=== PATIENT | female | born 1950 | race Caucasian/White ===

== ENCOUNTER 2017-12-24 09:53 | Outpatient (CLI) | payer MEDICARE | END 2017-12-24 09:54 | disposition home or self-care (01) | LOC: BICMAMMO 09:53 | PROVIDERS: ATTEND Obstetrics & Gynecology | DX: Z12.31 Encounter for screening mammogram for malignant neoplasm of breast (principal); Z13.820 Encounter for screening for osteoporosis | CPT/HCPCS: 77063; 77067; 77080 ==

== ENCOUNTER 2018-04-24 12:25 | Observation (INO) | payer MEDICARE, BC ==
[2018-04-24] MEDS ORDERED: Nitroglycerin 2% Ointment 1 INCH/1 GM Packet ONE (13:51)
[2018-04-24 14:30] LABS: Troponin I Less than 0.010 ng/mL (< 0.028)
[2018-04-24] MEDS ORDERED: Nitroglycerin 0.4 MG TAB (25 Tab Bottle) PO PRN (14:48)
[2018-04-24] MEDS ORDERED: Bisacodyl 5 MG TAB PO PRN (14:48)
[2018-04-24] MEDS ORDERED: Acetaminophen 325 MG TAB PO PRN (14:48)
[2018-04-24] MEDS ORDERED: Acetaminophen 650 MG Suppository PR PRN (14:48)
[2018-04-24 15:37] VITALS: BMI 28.5
--- NOTE | 2018-04-24 16:46 | HP ---
PRIMARY CARE PROVIDER: Salvatore Roe M.D. CHIEF COMPLAINT: Chest tightness. HISTORY OF PRESENT ILLNESS: Ms. Morris is a pleasant 68-year-old lady, who was seen at [facility] on 04/24/2018, following transfer from emergency room at [place]. She reports that over the last 5 days, she has been having palpitations. This was accompanied by angelita st tightness. She describes a tightness as retrosternal, nonradiating, on and off, no known aggravat ing or relieving factors, and not accompanied by lightheadedness, nausea or vomiting. She describes that the discomfort was 4-5/10 at its worst. She reports that sometimes the palpitations disappeared when she sits down and takes deep breaths. However, today's episode lasted longer, therefore she pr esented to the emergency room. When I saw her, she denied any chest discomfort or palpitations. REVIEW OF SYSTEMS: All other systems reviewed and found to be negative. PAST MEDICAL HISTORY: Hypertension, borderline diabetes type 2, plantar fasciitis, transient ischemi c attack and chronic left leg swelling. PAST SURGICAL HISTORY: Hysterectomy, oophorectomy, and colonoscopy. SOCIAL HISTORY: The patient denies alcohol use or recreational drug use. She smokes half a pack of cigarettes a day. FAMILY HISTORY: Significant for myocardial infarction in her father. ALLERGIES: No known drug allergies. CURRENT MEDICATIONS: Amlodipine 5 mg daily, calcium 600 mg daily, vitamin D3 2000 units daily, hydro chlorothiazide 12.5 mg daily, Toprol-XL 50 mg daily, Benicar 40 mg daily. PHYSICAL EXAMINATION: GENERAL: Ms. Morris is awake and alert, not in acute distress. VITAL SIGNS: Blood pressure is 134/67, pulse 80, respiratory rate 18, and oxygen saturation 95% on r oom air. She is afebrile. EYES: No scleral icterus. No conjunctival pallor. ENT: Moist mucosal membranes, no oropharyngeal erythema or exudates. NECK: Supple, nontender, trachea is midline. RESPIRATORY: Accessory muscles of breathing are not active. Chest wall movements are symmetric bila terally. LUNGS: Clear to auscultation without wheeze, rhonchi or crepitations. CARDIOVASCULAR: S1 and S2 are heard, regular. Peripheral pulses palpable. No carotid bruit, no per icardial rub. ABDOMEN: Soft, nontender, bowel sounds heard, no hepatomegaly, no splenomegaly. NEUROLOGIC: Cranial nerves II-XII intact, deep tendon reflexes are 2+. MUSCULOSKELETAL: Power is 5/5 in all 4 extremities. SKIN: No rashes or subcutaneous nodules. LYMPHATIC: No cervical lymphadenopathy. PSYCHIATRIC: Normal mood, normal affect, patient is oriented to person, place, and time. LABORATORY DATA: Ms. Morris's labs and investigations were reviewed. I reviewed her electrocardio gram, which shows normal sinus rhythm with premature atrial complexes. I also reviewed her chest x-r ay, which does not show any pulmonary infiltrates. She has normal troponin I, leukocytosis with 11,4 00 white cells, of which 76% are neutrophils, normal hemoglobin, normal platelet count, normal D-dime r of 0.35, decreased sodium of 135, normal potassium, normal creatinine and normal liver profile. ASSESSMENT AND PLAN: Ms. Morris is a pleasant 68-year-old lady, who was seen at [facility] on 04/24/2018. Her problem list includes: 1. Palpitations: Etiology unclear, she has premature atrial complexes on electrocardiogram. We destiny l admit her to the hospital and monitor her on telemetry. Further management depending on whether an y arrhythmias are seen. 2. Chest discomfort: Given her significant risk factors, we will obtain pharmacologic nuclear stres s test. 3. Hypertension: Continue home medications, monitor vital signs and titrate antihypertensives as ne eded. 4. Hyponatremia: Mild, likely asymptomatic, we will recheck. Many thanks for allowing me to participate in your patient's care. Please feel free to contact me wi th any questions or concerns. LEVEL OF RISK: High. LEVEL OF COMPLEXITY: High.
[2018-04-24 17:22] LABS: Troponin I Less than 0.010 ng/mL (< 0.028)
[2018-04-24] MEDS ORDERED: Prevnar 13-Val Conj/PF 0.5 ML SYRINGE IM ONE (21:00)
[2018-04-25 05:13] LABS: #Basophils 0.1 thou/uL (0.0-0.2); #Eosinphils 0.2 thou/uL (0.0-0.7); #Lymphocytes 1.5 thou/uL (1.20-3.40); #Monocytes 0.8 thou/uL (0.11-0.59); #Neutrophils 6.8 thou/uL (1.40-6.50); %Basophils 0.6 % (0.0-1.0); %Eosinophils 1.7 % (0.0-10.0); %Lymphocytes 15.7 % (21.0-51.0); %Monocytes 8.9 % (0.0-10.0); %Neutrophils 73.1 % (42.0-75.0); Hemoglobin 13.1 g/dL (12.0-16.0); Mean Corpuscular HGB CONC 33.2 g/dL (32.0-36.0); Mean Corpuscular Hemoglobin 31.2 pg (27.0-31.0); Mean Corpuscular Volume 93.9 fL (78.0-98.0); Mean Platelet Volume 6.9 fL (7.4-10.4); Platelet Count 285 thou/uL (130-400); RBC Distribution Width 12.8 % (11.5-14.5); Red Blood Cell (RBC) Count 4.19 mill/uL (4.20-5.40); White Blood Cell (WBC) Count 9.3 thou/uL (4.8-10.8)
[2018-04-25 05:25] LABS: Anion Gap 11 mmol/L (10-20); BUN (Urea Nitrogen) 18 mg/dL (9.8-20.1); Calc. Creatinine Clearance 97 mL/min (70-130); Calcium 9.2 mg/dL (7.8-10.44); Carbon Dioxide 27 mmol/L (23-31); Chloride 96 mmol/L (98-107); Estimated GFR-MDRD 81; Glucose 108 mg/dL (80-115); Potassium 4.2 mmol/L (3.5-5.1); Sodium 130 mmol/L (136-145)
[2018-04-25] MEDS ORDERED: Calcium Carbonate 600 MG TAB PO SCH (08:00)
[2018-04-25] MEDS ORDERED: Hydrochlorothiazide 25 MG TAB PO SCH (09:00)
[2018-04-25] MEDS ORDERED: Amlodipine 10 MG TAB PO SCH (09:00)
[2018-04-25] MEDS ORDERED: Aspirin 325 MG TAB PO SCH (09:00)
[2018-04-25] MEDS ORDERED: ADENOSINE 60 MG/20 ML VIAL ONE (10:26)
--- NOTE | 2018-04-25 13:16 | NM ---
MYOCARDIAL PERFUSION SCAN WITH SPECT IMAGING: HISTORY: Chest pain. Examination was performed using 27 mCi 99m Technetium sestamibi on the stress and 9 on the resting im ages. This shows a fairly normal distribution of the radiopharmaceutical without signs of ischemia o r scar. WALL MOTION: There is symmetric contractility to the ventricle. LEFT VENTRICULAR EJECTION FRACTION: The calculated left ventricular ejection fraction was 78%. IMPRESSION: Unremarkable myocardial perfusion scan. POS: JAVAN
[2018-04-25 16:00] VITALS: BP 144/66; TEMP 98
--- NOTE | 2018-04-26 01:02 | DIS ---
DATE OF ADMISSION: 04/24/2018 DATE OF DISCHARGE: 04/25/2018 DISCHARGE DIAGNOSES: 1. Chest pain, likely musculoskeletal. 2. Palpitations. 3. Hypertension, stable. 4. Hyponatremia secondary to hydrochlorothiazide. CONSULTATIONS: None. PERTINENT LABORATORY AND X-RAY FINDINGS: Sodium ranged between 130-135, creatinine 0.72. Troponin I negative x3. CBC within normal limits. Portable chest x-ray dated 04/24/2018 showed no acute cardi opulmonary process. Cardiolite stress test dated 04/25/2018 showed no evidence for reversible or fix ed ischemia with calculated ejection fraction of 78%. HOSPITAL COURSE: The patient was observed on the telemetry unit after initially presenting with ches t pain and palpitations. The patient underwent Cardiolite stress testing showing no evidence of reve rsible or fixed ischemia with calculated ejection fraction of 78%. Screening metabolic survey reveal ed mild hyponatremia likely due to chronic hydrochlorothiazide exposure. Recommendations are for ser ial monitoring as an outpatient and consideration for all adjustment to current dosing or considerati on for new agent. Telemetry monitoring showed a sinus mechanism with occasional premature atrial con tractions. Overall, the patient remained clinically stable during the hospital course. I have clay zayas discussed followup instructions and pertinent labs and cardiac studies at the time of discharge. The patient and spouse verbalized understanding and agreement and ready for discharge on 04/25/2018. DISCHARGE MEDICATIONS: 1. Amlodipine 5 mg p.o. daily. 2. Calcium carbonate 600 mg p.o. daily. 3. Vitamin D3 of 2000 units p.o. daily. 4. Hydrochlorothiazide 12.5 mg p.o. daily. 5. Toprol-XL 50 mg p.o. daily. 6. Benicar 40 mg p.o. daily. FOLLOWUP: The patient will follow up with Dr. Salvatore Roe within 7 days of discharge. CONDITION ON DISCHARGE: Stable. ACTIVITY: Ad heidi. DIET: Regular. CODE STATUS: FULL. DISPOSITION: Home on 04/25/2018.
== END 2018-04-25 16:16 | disposition home or self-care (01) ==
LOC: ERS 12:25 → 2SW 15:29
PROVIDERS: ADMIT Internal Medicine; ATTEND Internal Medicine
DX: R07.89 Other chest pain (principal); I10 Essential (primary) hypertension; E78.5 Hyperlipidemia, unspecified; E87.1 Hypo-osmolality and hyponatremia; Z79.899 Other long term (current) drug therapy
CPT/HCPCS: 78452; 80048; 84484; 85025; 90670; 93017; 94760 ×2; 99285; A9500; G0009; G0378 ×2; 36415; 90471; J0153

== ENCOUNTER 2021-06-14 08:04 | Inpatient (IN) | payer MEDICARE, BC ==
[2021-06-14] MEDS ORDERED: Furosemide 40 MG/4 ML VIAL ONE (08:25)
[2021-06-14 08:53] LABS: ALT (SGPT) 11 U/L (8-55); AST (SGOT) 13 U/L (5-34); Albumin 3.7 g/dL (3.4-4.8); Alkaline Phosphatase 103 U/L (40-110); Anion Gap 11 mmol/L (10-20); BUN (Urea Nitrogen) 16 mg/dL (9.8-20.1); Bilirubin, Total 0.3 mg/dL (0.2-1.2); Calc. Creatinine Clearance 0 mL/min (70-130); Calcium 8.5 mg/dL (7.8-10.44); Carbon Dioxide 24 mmol/L (23-31); Chloride 108 mmol/L (98-107); Globulin 2.2 g/dL (2.4-3.5); Glucose 107 mg/dL (80-115); Potassium 4.2 mmol/L (3.5-5.1); Protein, Total 5.9 g/dL (5.8-8.1); Sodium 139 mmol/L (136-145)
[2021-06-14 08:56] LABS: #Eosinphils 0.1 thou/uL (0.0-0.7); #Lymphocytes 1.1 thou/uL (1.20-3.40); #Monocytes 0.8 thou/uL (0.11-0.59); #Neutrophils 6.8 thou/uL (1.40-6.50); %Basophils 0.2 % (0.0-1.0); %Eosinophils 1.4 % (0.0-10.0); %Lymphocytes 12.7 % (21.0-51.0); %Neutrophils 76.7 % (42.0-75.0); Hemoglobin 5.3 g/dL (12.0-16.0); Mean Corpuscular HGB CONC 27.9 g/dL (32.0-36.0); Mean Corpuscular Hemoglobin 17.7 pg (27.0-31.0); Mean Corpuscular Volume 63.5 fL (78.0-98.0); Mean Platelet Volume 10.3 fL (7.4-10.4); Platelet Count 290 thou/uL (130-400); RBC Distribution Width 19.4 % (11.5-14.5); Red Blood Cell (RBC) Count 2.98 mill/uL (4.20-5.40); White Blood Cell (WBC) Count 8.9 thou/uL (4.8-10.8)
[2021-06-14 09:55] LABS: Hypochromia MARKED = >30 cells (100X) (0-5/hpf); Polychromasia SLIGHT = 2-3 cells (100X) (0-2/hpf)
[2021-06-14 09:56] LABS: Microcytosis MODERATE=15-30 cells (100X) (0-5/hpf)
[2021-06-14 09:57] LABS: Ovalocytes SLIGHT = 2-5 cells (100X) (0-1/hpf); Stomatocytes SLIGHT = 2-5 cells (100X) (0-1/hpf)
[2021-06-14] MEDS ORDERED: Acetaminophen 325 MG TAB PO PRN (10:08)
[2021-06-14] MEDS ORDERED: Bisacodyl 5 MG TAB PO PRN (10:08)
[2021-06-14] MEDS ORDERED: Senokot S 8.6-50 MG TAB PO PRN (10:08)
[2021-06-14 10:47] LABS: Iron 14 ug/dL (50-170); Iron Binding Capacity, Total 511 mcg/dL (265-497)
[2021-06-14 10:55] LABS: Troponin I Less than 0.010 ng/mL (< 0.028)
[2021-06-14 13:29] LABS: Ferritin 4.35 ng/mL (10-291)
[2021-06-14] MEDS ORDERED: Potassium Chloride 10 MEQ TAB PO SCH (14:00)
[2021-06-14 14:56] VITALS: BMI 28.4
[2021-06-14] MEDS: Azithromycin 250 MG TAB PO SCH (15:17)
[2021-06-14] MEDS: Furosemide 40 MG/4 ML VIAL SLOW IVP SCH (15:18)
[2021-06-14 15:43] LABS: MDiff Complete? YES
[2021-06-14 16:22] LABS: Troponin I Less than 0.010 ng/mL (< 0.028)
[2021-06-14 17:06] LABS: SARS-CoV-2 PCR by NAA Not Detected (NotDetected)
[2021-06-14] MEDS: cefTRIAXone\\ROCEPHIN 1 GM in Sodium Chloride 0.9% 100 ML IVPB SCH (17:42)
[2021-06-14 18:46] LABS: Hemoglobin 7.4 g/dL (12.0-16.0)
[2021-06-14] MEDS: Rosuvastatin 20 MG TAB PO SCH (20:04)
[2021-06-15] MEDS: Furosemide 40 MG/4 ML VIAL SLOW IVP SCH (06:21)
[2021-06-15 07:11] LABS: #Eosinphils 0.1 thou/uL (0.0-0.7); #Lymphocytes 1.3 thou/uL (1.20-3.40); #Monocytes 0.8 thou/uL (0.11-0.59); #Neutrophils 5.7 thou/uL (1.40-6.50); %Basophils 0.6 % (0.0-1.0); %Eosinophils 1.6 % (0.0-10.0); %Lymphocytes 16.5 % (21.0-51.0); %Neutrophils 71.3 % (42.0-75.0); Hemoglobin 7.3 g/dL (12.0-16.0); Mean Corpuscular Hemoglobin 20.2 pg (27.0-31.0); Mean Corpuscular Volume 67.2 fL (78.0-98.0); Mean Platelet Volume 10.7 fL (7.4-10.4); Platelet Count 284 thou/uL (130-400); RBC Distribution Width 21.9 % (11.5-14.5); Red Blood Cell (RBC) Count 3.63 mill/uL (4.20-5.40)
[2021-06-15 07:24] LABS: Anion Gap 12 mmol/L (10-20); BUN (Urea Nitrogen) 13 mg/dL (9.8-20.1); Calc. Creatinine Clearance 92 mL/min (70-130); Calcium 8.8 mg/dL (7.8-10.44); Carbon Dioxide 27 mmol/L (23-31); Chloride 103 mmol/L (98-107); Glucose 115 mg/dL (80-115); Potassium 3.9 mmol/L (3.5-5.1); Sodium 138 mmol/L (136-145)
[2021-06-15] MEDS: Cholecalciferol 1,000 UNITS (25 MCG) TAB PO SCH (08:55)
[2021-06-15] MEDS: Losartan 25 MG TAB PO SCH (08:55)
[2021-06-15] MEDS: Vit A,C & E/Lutein/Minerals Tablet PO SCH (08:56)
[2021-06-15] MEDS: Calcium Carbonate 600 MG TAB PO SCH (08:56)
[2021-06-15] MEDS: Enoxaparin Sodium 40 MG/0.4 ML SYRINGE SC SCH (08:59)
[2021-06-15] MEDS ORDERED: Non-Formulary Item 1 EACH (Cholecalciferol (Vitamin D3) [Vitamin D] 1000 UNIT Capsule) PO SCH (09:00)
[2021-06-15] MEDS ORDERED: Aspirin 81 mg Enteric Coated Tablet PO SCH (09:00)
[2021-06-15] MEDS ORDERED: Non-Formulary Item 1 EACH (Vit A/Vit C/Vit E/Zinc/Copper [Preservision Areds] 1 TABLET Ta PO SCH (09:00)
[2021-06-15] MEDS ORDERED: Calcium Carbonate 500 MG TAB PO SCH (09:00)
[2021-06-15] MEDS ORDERED: Hydrochlorothiazide 25 MG TAB PO SCH (09:00)
[2021-06-15] MEDS ORDERED: Cholecalciferol 1,000 UNITS (25 MCG) TAB PO SCH (09:00)
[2021-06-15] MEDS: cefTRIAXone\\ROCEPHIN 1 GM in Sodium Chloride 0.9% 100 ML IVPB SCH (13:07)
[2021-06-15] MEDS: Azithromycin 250 MG TAB PO SCH (13:08)
[2021-06-15] MEDS ORDERED: GoLYTELY 4,000 ml Bottle PO SCH (17:00)
[2021-06-15] MEDS: Rosuvastatin 20 MG TAB PO SCH (20:01)
[2021-06-16] MEDS ORDERED: Furosemide 40 MG TAB PO SCH (07:30)
[2021-06-16 07:49] LABS: Anion Gap 13 mmol/L (10-20); BUN (Urea Nitrogen) 10 mg/dL (9.8-20.1); Calc. Creatinine Clearance 99 mL/min (70-130); Calcium 8.9 mg/dL (7.8-10.44); Carbon Dioxide 25 mmol/L (23-31); Chloride 106 mmol/L (98-107); Glucose 103 mg/dL (80-115); Potassium 3.7 mmol/L (3.5-5.1); Sodium 140 mmol/L (136-145)
[2021-06-16] MEDS ORDERED: Potassium Chloride 10 MEQ TAB PO SCH (09:00)
[2021-06-16] MEDS ORDERED: PROPOFOL 200 MG/20 ML VIAL ONE (09:14)
[2021-06-16] MEDS ORDERED: Lidocaine 1% PF 5 ML VIAL ONE (09:14)
[2021-06-16] MEDS: Calcium Carbonate 600 MG TAB PO SCH (10:50)
[2021-06-16] MEDS: Cholecalciferol 1,000 UNITS (25 MCG) TAB PO SCH (10:50)
[2021-06-16] MEDS: Losartan 25 MG TAB PO SCH (10:51)
[2021-06-16] MEDS: Vit A,C & E/Lutein/Minerals Tablet PO SCH (10:58)
[2021-06-16] MEDS: Enoxaparin Sodium 40 MG/0.4 ML SYRINGE SC SCH (11:02)
[2021-06-16 11:34] LABS: #Eosinphils 0.1 thou/uL (0.0-0.7); #Lymphocytes 1.2 thou/uL (1.20-3.40); #Monocytes 0.7 thou/uL (0.11-0.59); #Neutrophils 5.6 thou/uL (1.40-6.50); %Basophils 0.4 % (0.0-1.0); %Eosinophils 1.7 % (0.0-10.0); %Lymphocytes 16.1 % (21.0-51.0); %Monocytes 9.4 % (0.0-10.0); %Neutrophils 72.4 % (42.0-75.0); Hemoglobin 7.6 g/dL (12.0-16.0); Mean Corpuscular HGB CONC 30.6 g/dL (32.0-36.0); Mean Corpuscular Hemoglobin 20.6 pg (27.0-31.0); Mean Corpuscular Volume 67.3 fL (78.0-98.0); Mean Platelet Volume 10.9 fL (7.4-10.4); Platelet Count 283 thou/uL (130-400); White Blood Cell (WBC) Count 7.7 thou/uL (4.8-10.8)
[2021-06-16 11:48] LABS: Hypochromia MODERATE=16-30 cells (100X) (0-5/hpf); MDiff Complete? YES; Microcytosis MODERATE=15-30 cells (100X) (0-5/hpf); Ovalocytes SLIGHT = 2-5 cells (100X) (0-1/hpf); Platelet Morphology Comment Appears Adequate; Polychromasia SLIGHT = 2-3 cells (100X) (0-2/hpf); Reflex for Review?? NO
[2021-06-16 14:29] VITALS: BP 150/69; TEMP 98.1
[2021-06-16] MEDS: Azithromycin 250 MG TAB PO SCH (15:18)
[2021-06-16] MEDS: cefTRIAXone\\ROCEPHIN 1 GM in Sodium Chloride 0.9% 100 ML IVPB SCH (15:25)
== END 2021-06-16 15:40 | disposition home or self-care (01) | DRG 811 ==
LOC: ERS 08:04 → T4-A 09:57
PROVIDERS: ADMIT Internal Medicine; ATTEND Internal Medicine
PROC: 0DB98ZX Excision of Duodenum, Via Natural or Artificial Opening Endoscopic, Diagnostic (ICD-10-PCS; principal; 2021-06-14)
PROC: 0DB68ZX Excision of Stomach, Via Natural or Artificial Opening Endoscopic, Diagnostic (ICD-10-PCS; 2021-06-14)
PROC: 0DJD8ZZ Inspection of Lower Intestinal Tract, Via Natural or Artificial Opening Endoscopic (ICD-10-PCS; 2021-06-14)
PROC: 30233N1 Transfusion of Nonautologous Red Blood Cells into Peripheral Vein, Percutaneous Approach (ICD-10-PCS; 2021-06-14)
DX: D62 Acute posthemorrhagic anemia (principal); J18.9 Pneumonia, unspecified organism; F17.210 Nicotine dependence, cigarettes, uncomplicated; Z20.822 Contact with and (suspected) exposure to COVID-19; K31.7 Polyp of stomach and duodenum; K64.8 Other hemorrhoids; K64.4 Residual hemorrhoidal skin tags; I11.0 Hypertensive heart disease with heart failure; E11.9 Type 2 diabetes mellitus without complications; E78.5 Hyperlipidemia, unspecified; I50.9 Heart failure, unspecified; Z80.0 Family history of malignant neoplasm of digestive organs; Z79.82 Long term (current) use of aspirin; Z79.899 Other long term (current) drug therapy; Z86.73 Personal history of transient ischemic attack (TIA), and cerebral infarction without residual deficits; Z90.710 Acquired absence of both cervix and uterus
CPT/HCPCS: 36415; 36430; 71045; 80048; 80053; 82306; 82607; 82728; 82746; 83540; 83550; 83880; 84443; 84484; 85025; 85060; 86850; 86900; 86901; 88305; 93005; 96374; J0696; J1940; J2704; J3490; P9016; U0003; U0005

== ENCOUNTER 2021-07-11 09:09 | Outpatient (CLI) | payer MEDICARE, BC | END 2021-07-11 09:10 | disposition home or self-care (01) | LOC: CT 09:09 | PROVIDERS: ATTEND Internal Medicine Gastroenterology | DX: K56.699 Other intestinal obstruction unspecified as to partial versus complete obstruction (principal); D50.9 Iron deficiency anemia, unspecified | CPT/HCPCS: 74178; 82565 ==

== ENCOUNTER 2021-10-03 09:56 | Outpatient (CLI) | payer MEDICARE, BC | END 2021-10-03 09:57 | disposition home or self-care (01) | LOC: BICMAMMO 09:56 | PROVIDERS: ATTEND Internal Medicine | DX: Z12.31 Encounter for screening mammogram for malignant neoplasm of breast (principal); Z91.89 Other specified personal risk factors, not elsewhere classified | CPT/HCPCS: 77063; 77067 ==

== ENCOUNTER 2022-01-30 06:37 | Outpatient (CLI) | payer MEDICARE, BC ==
[2022-01-30] MEDS ORDERED: Iopamidol 370 76% 100 ML VIAL ONE (13:49)
== END 2022-01-30 06:38 | disposition home or self-care (01) ==
LOC: CT 06:37
PROVIDERS: ATTEND Internal Medicine Gastroenterology
DX: D50.9 Iron deficiency anemia, unspecified (principal); K56.699 Other intestinal obstruction unspecified as to partial versus complete obstruction
CPT/HCPCS: 74178; Q9967

== ENCOUNTER 2022-09-04 17:01 | Inpatient (IN) | payer MEDICARE, BC ==
[2022-09-04] MEDS ORDERED: Ondansetron PF 4 MG/2 ML Vial IVP PRN (22:46)
[2022-09-04] MEDS ORDERED: Ondansetron ODT 4 MG TAB PO PRN (22:46)
[2022-09-04] MEDS ORDERED: Acetaminophen 325 MG TAB PO PRN (22:46)
[2022-09-04 23:15] LABS: #Eosinphils 0.2 thou/uL (0.0-0.7); #Lymphocytes 1.5 thou/uL (1.20-3.40); #Monocytes 0.9 thou/uL (0.11-0.59); #Neutrophils 6.3 thou/uL (1.40-6.50); %Basophils 0.4 % (0.0-1.0); %Eosinophils 1.8 % (0.0-10.0); %Lymphocytes 17.2 % (21.0-51.0); %Monocytes 9.8 % (0.0-10.0); %Neutrophils 70.8 % (42.0-75.0); Hemoglobin 7.1 g/dL (12.0-16.0); Mean Corpuscular HGB CONC 30.9 g/dL (32.0-36.0); Mean Corpuscular Hemoglobin 25.1 pg (27.0-31.0); Mean Corpuscular Volume 81.3 fl (78.0-98.0); Mean Platelet Volume 7.8 fL (7.4-10.4); Platelet Count 270 10x3/uL (130-400); RBC Distribution Width 20.1 % (11.5-14.5); Red Blood Cell (RBC) Count 2.82 mill/uL (4.20-5.40); White Blood Cell (WBC) Count 8.9 10x3/uL (4.8-10.8)
[2022-09-04 23:30] LABS: INR-International Normal Ratio 0.9; Prothrombin Time 12.9 sec (12.0-14.7)
[2022-09-04 23:31] LABS: PTT 26.1 sec (22.9-36.1)
[2022-09-04 23:48] LABS: ALT (SGPT) 13 U/L (8-55); AST (SGOT) 13 U/L (5-34); Albumin 3.7 g/dL (3.4-4.8); Alkaline Phosphatase 77 U/L (40-110); Anion Gap 12 mmol/L (10-20); BUN (Urea Nitrogen) 18 mg/dL (9.8-20.1); Bilirubin, Total 0.3 mg/dL (0.2-1.2); Calc. Creatinine Clearance 0 mL/min (70-130); Calcium 8.8 mg/dL (7.8-10.44); Carbon Dioxide 26 mmol/L (23-31); Chloride 103 mmol/L (98-107); Estimated GFR 87; Globulin 2.3 g/dL (2.4-3.5); Glucose 128 mg/dL (80-115); Iron 64 ug/dL (50-170); Potassium 3.8 mmol/L (3.5-5.1); Sodium 137 mmol/L (136-145)
[2022-09-05] MEDS ORDERED: Rosuvastatin 10 MG TAB PO SCH ×2 (00:15→21:00)
[2022-09-05 02:07] VITALS: BMI 28.5
[2022-09-05 02:45] LABS: Transferrin, Serum 358 mg/dL (173-360)
[2022-09-05 03:07] LABS: Iron Binding Capacity, Total 440 mcg/dL (265-497)
[2022-09-05 04:51] LABS: SARS-CoV-2 NAA Rapid Test Not Detected (NotDetected)
[2022-09-05 07:47] LABS: Hemoglobin 8.2 g/dL (12.0-16.0)
[2022-09-05] MEDS: Pantoprazole 40 MG VIAL IVP SCH ×2 (08:51→20:40)
[2022-09-05] MEDS ORDERED: Loratadine 10 MG TAB PO PRN (14:22)
[2022-09-06 06:27] LABS: #Eosinphils 0.1 thou/uL (0.0-0.7); #Lymphocytes 1.3 thou/uL (1.20-3.40); #Monocytes 0.8 thou/uL (0.11-0.59); #Neutrophils 4.5 thou/uL (1.40-6.50); %Basophils 0.4 % (0.0-1.0); %Eosinophils 1.7 % (0.0-10.0); %Monocytes 11.5 % (0.0-10.0); %Neutrophils 67.4 % (42.0-75.0); Hemoglobin 8.3 g/dL (12.0-16.0); Mean Corpuscular HGB CONC 31.6 g/dL (32.0-36.0); Mean Corpuscular Hemoglobin 26.6 pg (27.0-31.0); Mean Corpuscular Volume 84.2 fl (78.0-98.0); Mean Platelet Volume 7.9 fL (7.4-10.4); Platelet Count 258 10x3/uL (130-400); RBC Distribution Width 19.3 % (11.5-14.5); Red Blood Cell (RBC) Count 3.11 mill/uL (4.20-5.40); White Blood Cell (WBC) Count 6.7 10x3/uL (4.8-10.8)
[2022-09-06 06:50] LABS: Anion Gap 11 mmol/L (10-20); BUN (Urea Nitrogen) 14 mg/dL (9.8-20.1); Calc. Creatinine Clearance 92 mL/min (70-130); Calcium 8.5 mg/dL (7.8-10.44); Carbon Dioxide 27 mmol/L (23-31); Chloride 105 mmol/L (98-107); Estimated GFR 93; Glucose 116 mg/dL (80-115); Potassium 4.1 mmol/L (3.5-5.1); Sodium 139 mmol/L (136-145)
[2022-09-06] MEDS: Pantoprazole 40 MG VIAL IVP SCH (08:27)
[2022-09-06] MEDS ORDERED: Potassium Chloride 10 MEQ TAB PO SCH (09:00)
[2022-09-06] MEDS ORDERED: Calcium Carbonate 500 MG TAB PO SCH (09:00)
[2022-09-06] MEDS ORDERED: Cholecalciferol 1,000 UNITS (25 MCG) TAB PO SCH (09:00)
[2022-09-06] MEDS ORDERED: Furosemide 20 MG TAB PO SCH (09:00)
[2022-09-06 11:25] VITALS: BP 127/60; TEMP 98.2
== END 2022-09-06 11:50 | disposition home or self-care (01) | DRG 812 ==
LOC: NEURO 17:01 → OBSVTOIN 09-05 16:31
PROVIDERS: ADMIT Family Medicine; ATTEND Family Medicine
PROC: 30233N1 Transfusion of Nonautologous Red Blood Cells into Peripheral Vein, Percutaneous Approach (ICD-10-PCS; principal; 2022-09-05)
DX: D62 Acute posthemorrhagic anemia (principal); Z20.822 Contact with and (suspected) exposure to COVID-19; E78.5 Hyperlipidemia, unspecified; R19.5 Other fecal abnormalities; E11.9 Type 2 diabetes mellitus without complications; I10 Essential (primary) hypertension; F17.210 Nicotine dependence, cigarettes, uncomplicated; Z79.899 Other long term (current) drug therapy; Z79.82 Long term (current) use of aspirin; Z90.710 Acquired absence of both cervix and uterus; Z90.722 Acquired absence of ovaries, bilateral; Z98.49 Cataract extraction status, unspecified eye; Z80.0 Family history of malignant neoplasm of digestive organs
CPT/HCPCS: 36415; 36430; 74177; 80048; 80053; 82274; 82728; 83540; 83550; 84466; 85014; 85018; 85025; 85610; 85730; 86850; 86900; 86901; 96374; C9113; G0378; P9016

== ENCOUNTER 2022-10-11 14:12 | Outpatient (CLI) | payer MEDICARE, BC | END 2022-10-11 14:13 | disposition home or self-care (01) | LOC: BICMAMMO 14:12 | PROVIDERS: ATTEND Internal Medicine | DX: Z12.31 Encounter for screening mammogram for malignant neoplasm of breast (principal); Z91.89 Other specified personal risk factors, not elsewhere classified | CPT/HCPCS: 77063; 77067 ==

== ENCOUNTER 2022-10-12 12:00 | Inpatient (IN) | payer MEDICARE, BC ==
[2022-10-16 12:31] VITALS: BMI 29.3
[2022-10-17] MEDS ORDERED: Sodium Chloride 0.9% 100 ML ONE (07:52)
[2022-10-17] MEDS ORDERED: Ketorolac Tromethamine 30 MG/ML VIAL ONE (07:52)
[2022-10-17] MEDS ORDERED: Acetaminophen 500 MG TAB ONE (07:52)
[2022-10-17] MEDS ORDERED: CEFAZOLIN 2 GM VIAL ONE (07:52)
[2022-10-17] MEDS ORDERED: Midazolam HCl 2 mg/2 ml Vial ONE (08:35)
[2022-10-17] MEDS ORDERED: Bupivacaine PF 0.5% 30 ML VIAL ONE (08:35)
[2022-10-17] MEDS ORDERED: FENTANYL 50 MCG/ML 1 ML VIAL ONE (08:35)
[2022-10-17] MEDS ORDERED: Bupivacaine/Epinephrine 0.25% 30 ML VIAL ONE (08:44)
[2022-10-17] MEDS ORDERED: Albumin 5% 0 ML ONE (08:52)
[2022-10-17] MEDS ORDERED: fentaNYL PF 100 MCG/2 ML SYRINGE ONE (08:52)
[2022-10-17 09:02] LABS: SARS-CoV-2 NAA Rapid Test Not Detected (NotDetected)
[2022-10-17] MEDS ORDERED: Phenylephrine 10 MG/ML VIAL ONE (09:04)
[2022-10-17] MEDS ORDERED: NEOSTIGMINE 3 MG/3 ML SYR 3 MG/3 ML SYRINGE ONE (09:17)
[2022-10-17] MEDS ORDERED: Dexamethasone 20 MG/5 ML VIAL ONE (09:17)
[2022-10-17] MEDS ORDERED: Lidocaine 1% PF 5 ML VIAL ONE (09:17)
[2022-10-17] MEDS ORDERED: PROPOFOL 200 MG/20 ML VIAL ONE (09:17)
[2022-10-17] MEDS ORDERED: Ondansetron PF 4 MG/2 ML Vial ONE (09:17)
[2022-10-17] MEDS ORDERED: ePHEDrine 50 MG/ML VIAL ONE (09:17)
[2022-10-17] MEDS ORDERED: Metoclopramide HCl 10 MG/2 ML VIAL ONE (09:17)
[2022-10-17] MEDS ORDERED: Glycopyrrolate 0.2 MG/ML 5 ML SYRINGE ONE (09:17)
[2022-10-17] MEDS ORDERED: Bupivacaine HCl 0.5%/Epinephrine 1:200,000/PF 30 ml Vial ONE (09:17)
[2022-10-17] MEDS ORDERED: Rocuronium Bromide 10 MG/ML (10ML VIAL) ONE (09:17)
[2022-10-17] MEDS ORDERED: Ondansetron HCl/PF 4 MG/2 ML Vial IVP PRN (11:31)
[2022-10-17] MEDS ORDERED: Promethazine HCl 25 MG/ML VIAL IM PRN ×2 (11:31→11:59)
[2022-10-17] MEDS ORDERED: PACU-Morphine 4MG/ML VIAL SLOW IVP PRN (11:31)
[2022-10-17] MEDS ORDERED: hydrALAZINE 20 MG/ML VIAL SLOW IVP PRN (11:59)
[2022-10-17] MEDS ORDERED: Ipratropium/Albuterol 3 ML NEB NEB PRN (11:59)
[2022-10-17] MEDS ORDERED: Ondansetron PF 4 MG/2 ML Vial IVP PRN (11:59)
[2022-10-17] MEDS ORDERED: Morphine 2 MG/ML VIAL SLOW IVP PRN (11:59)
[2022-10-17] MEDS ORDERED: HYDROcodone/Acetaminophen 7.5/325 mg Tablet PO PRN ×2 (11:59)
[2022-10-17] MEDS: Ketorolac Tromethamine 30 MG/ML VIAL IVP SCH ×3 (14:16→23:38)
[2022-10-17] MEDS: D5 1/2 NS w/20 mEq KCL 1,000 ML IV SCH ×2 (14:16→20:15)
[2022-10-17] MEDS: Morphine 4 MG/ML VIAL SLOW IVP PRN (15:31)
[2022-10-17] MEDS: Famotidine/PF 20 mg/2ml Vial SLOW IVP SCH (20:15)
[2022-10-17] MEDS: Famotidine 20 MG TAB PO SCH (20:15)
[2022-10-17] MEDS: Rosuvastatin 20 MG TAB PO SCH (20:15)
[2022-10-18] MEDS: D5 1/2 NS w/20 mEq KCL 1,000 ML IV SCH ×2 (04:21→11:47)
[2022-10-18] MEDS: Morphine 4 MG/ML VIAL SLOW IVP PRN (04:31)
[2022-10-18] MEDS: Ketorolac Tromethamine 30 MG/ML VIAL IVP SCH ×3 (06:05→17:42)
[2022-10-18 06:49] LABS: #Lymphocytes 0.4 thou/uL (1.20-3.40); #Monocytes 0.5 thou/uL (0.11-0.59); #Neutrophils 12.2 thou/uL (1.40-6.50); %Eosinophils 0.1 % (0.0-10.0); %Lymphocytes 3.3 % (21.0-51.0); %Monocytes 4.1 % (0.0-10.0); %Neutrophils 92.6 % (42.0-75.0); Hemoglobin 11.4 g/dL (12.0-16.0); Mean Corpuscular HGB CONC 32.9 g/dL (32.0-36.0); Mean Corpuscular Hemoglobin 30.5 pg (27.0-31.0); Mean Corpuscular Volume 92.6 fl (78.0-98.0); Mean Platelet Volume 8.9 fL (7.4-10.4); Platelet Count 172 10x3/uL (130-400); Red Blood Cell (RBC) Count 3.73 mill/uL (4.20-5.40); White Blood Cell (WBC) Count 13.2 10x3/uL (4.8-10.8)
[2022-10-18 07:10] LABS: Anion Gap 11 mmol/L (10-20); BUN (Urea Nitrogen) 16 mg/dL (9.8-20.1); Calc. Creatinine Clearance 93 mL/min (70-130); Calcium 8.2 mg/dL (7.8-10.44); Carbon Dioxide 25 mmol/L (23-31); Chloride 97 mmol/L (98-107); Estimated GFR 93; Glucose 186 mg/dL (80-115); Sodium 128 mmol/L (136-145)
[2022-10-18] MEDS: Famotidine 20 MG TAB PO SCH ×2 (08:16→20:49)
[2022-10-18] MEDS: Potassium Chloride 10 MEQ TAB PO SCH (08:16)
[2022-10-18] MEDS: Furosemide 20 MG TAB PO SCH (08:16)
[2022-10-18] MEDS: Famotidine/PF 20 mg/2ml Vial SLOW IVP SCH ×2 (08:17→20:50)
[2022-10-18] MEDS: Losartan/Hydrochlorothiazide 100 mg/25 mg Tablet PO SCH (08:17)
[2022-10-18] MEDS ORDERED: D5 1/2 NS w/20 mEq KCL 1,000 ML IV SCH (20:30)
[2022-10-18] MEDS: Rosuvastatin 20 MG TAB PO SCH (20:49)
[2022-10-19] MEDS: Ketorolac Tromethamine 30 MG/ML VIAL IVP SCH ×2 (00:30→06:00)
[2022-10-19 07:59] VITALS: BP 149/78; TEMP 97.4
[2022-10-19] MEDS: Famotidine 20 MG TAB PO SCH (09:31)
[2022-10-19] MEDS: Losartan/Hydrochlorothiazide 100 mg/25 mg Tablet PO SCH (09:31)
[2022-10-19] MEDS: Furosemide 20 MG TAB PO SCH (09:31)
[2022-10-19] MEDS: Famotidine/PF 20 mg/2ml Vial SLOW IVP SCH (09:32)
[2022-10-19] MEDS: Potassium Chloride 10 MEQ TAB PO SCH (09:32)
== END 2022-10-19 11:15 | disposition home or self-care (01) | DRG 331 ==
LOC: SURG A 10-17 07:02
PROVIDERS: ADMIT Specialist; ATTEND Specialist
PROC: 0DB80ZZ Excision of Small Intestine, Open Approach (ICD-10-PCS; principal; 2022-10-17)
DX: K92.2 Gastrointestinal hemorrhage, unspecified (principal); E11.9 Type 2 diabetes mellitus without complications; I10 Essential (primary) hypertension; E78.00 Pure hypercholesterolemia, unspecified; Z20.822 Contact with and (suspected) exposure to COVID-19; F17.210 Nicotine dependence, cigarettes, uncomplicated; D50.0 Iron deficiency anemia secondary to blood loss (chronic); Z79.82 Long term (current) use of aspirin; Z90.710 Acquired absence of both cervix and uterus; Z79.899 Other long term (current) drug therapy; Z98.890 Other specified postprocedural states; Z82.49 Family history of ischemic heart disease and other diseases of the circulatory system; Z83.3 Family history of diabetes mellitus; Z81.8 Family history of other mental and behavioral disorders
CPT/HCPCS: 36415; 36416; 80048; 85025; 88307; A4649; J1100; J1650; J1885; J2250; J2270; J2370; J2405; J2704; J2765; J3010; J3480; J3490; P9045; S0020; U0002

== ENCOUNTER 2022-10-12 12:13 | Outpatient (CLI) | payer MEDICARE, BC ==
[2022-10-12 13:14] LABS: #Eosinphils 0.1 10x3/uL (0.0-0.5); #Monocytes 0.6 10x3/uL (0.0-1.1); #Neutrophils 5.3 10x3/uL (1.5-8.4); %Basophils 0.3 % (0.0-2.0); %Eosinophils 1.8 % (0.0-6.0); %Lymphocytes 21.2 % (18.0-47.0); %Monocytes 7.5 % (0.0-10.0); %Neutrophils 68.8 % (40.0-75.0); Hemoglobin 12.4 g/dL (12.0-15.5); Mean Corpuscular HGB CONC 30.8 g/dL (32.0-36.0); Mean Corpuscular Hemoglobin 28.2 pg (27.0-33.0); Mean Corpuscular Volume 91.6 fl (81.6-98.3); Platelet Count 271 10x3/uL (150-450); RBC Distribution Width 18.2 % (11.5-14.5); Red Blood Cell (RBC) Count 4.39 10x6/uL (3.90-5.03); White Blood Cell (WBC) Count 7.7 10x3/uL (3.5-10.5)
[2022-10-12 13:33] LABS: Anion Gap 14 mmol/L (10-20); BUN (Urea Nitrogen) 21 mg/dL (9.8-20.1); Calc. Creatinine Clearance 0 mL/min (70-130); Calcium 10.3 mg/dL (7.8-10.44); Carbon Dioxide 28 mmol/L (23-31); Chloride 102 mmol/L (98-107); Estimated GFR 93; Glucose 98 mg/dL (80-115); Potassium 3.8 mmol/L (3.5-5.1); Sodium 140 mmol/L (136-145)
== END 2022-10-12 12:14 | disposition home or self-care (01) ==
LOC: LABBT 12:13
PROVIDERS: ATTEND Specialist
DX: Z01.818 Encounter for other preprocedural examination (principal); K92.2 Gastrointestinal hemorrhage, unspecified
CPT/HCPCS: 71046; 80048; 85025; 93005; 93010

== ENCOUNTER 2024-04-30 12:48 | Outpatient (CLI) | payer MEDICARE, BC | END 2024-04-30 12:49 | disposition home or self-care (01) | LOC: BICCT 12:48 | PROVIDERS: ATTEND Internal Medicine Hematology & Oncology | DX: Z12.2 Encounter for screening for malignant neoplasm of respiratory organs (principal); F17.210 Nicotine dependence, cigarettes, uncomplicated | CPT/HCPCS: 71271 ==